=== PATIENT | female | born 1970 | race Caucasian/White ===

== ENCOUNTER 2017-07-02 22:24 | Emergency (ER) | payer OTHER ==
[~2017-07-02] VITALS: Ht 154.9 cm; Wt 52.2 kg
[~2017-07-02 22:24] MED LIST changes: -PERC5TAB12 PO; -ZOFR4TAB3 PO
[2017-07-03] MEDS ORDERED: KETOROLAC 30 MG/ML VIAL (J1885) IV ONE (00:15)
[2017-07-03] MEDS ORDERED: NS 1,000 ML IV ONE (00:15)
[2017-07-03 00:58] LABS: RENAL EPITHELIAL CELLS 1 /HPF
[2017-07-03 01:07] LABS: BASO % 0.4 % (0.0-1.0); EOS # 0.1 K/mm3 (0.0-0.50); EOS % 0.5 % (0.0-3.0); LARGE UNSTAINED CELL # 0.2 K/mm3 (0.0-0.4); LARGE UNSTAINED CELL % 1.3 % (0.0-4.0); LYMPH # 1.6 K/mm3 (1.5-4.5); LYMPH % 10.2 % (24.0-44.0); MEAN CORPUSCULAR HEMOGLOBIN 34.2 pg (27.0-33.0); MEAN CORPUSCULAR VOLUME 100.6 fl (80.0-96.0); MONO # 1.2 K/mm3 (0.0-0.8); MONO % 8.6 % (0.0-5.0); NEUTROPHILS # 11.1 K/mm3 (1.8-7.7); PLATELET COUNT, AUTOMATED 184 k/mm3 (150-450); RED CELL DISTRIBUTION WIDTH 12.8 % (11.5-14.5); WHITE BLOOD COUNT 14.1 K/mm3 (4.0-10.0)
[2017-07-03 01:16] LABS: ALBUMIN 3.3 GM/DL (3.2-5.2); ALKALINE PHOSPHATASE 51 U/L (45-117); ALT/SGPT 22 U/L (12-78); ANION GAP 9 MEQ/L (8-16); AST/SGOT 13 U/L (15-37); BILIRUBIN,DIRECT 0.2 MG/DL (0.0-0.2); BILIRUBIN,TOTAL 0.9 MG/DL (0.2-1.0); BLOOD UREA NITROGEN 11 MG/DL (7-18); CALCIUM LEVEL 8.8 MG/DL (8.5-10.1); CARBON DIOXIDE LEVEL 24 MEQ/L (21-32); CHLORIDE LEVEL 100 MEQ/L (98-107); CREATININE FOR GFR 0.86 MG/DL (0.55-1.02); GLOMERULAR FILTRATION RATE > 60.0 (>58); GLUCOSE, FASTING 103 MG/DL (70-105); POTASSIUM SERUM 3.9 MEQ/L (3.5-5.1); SODIUM LEVEL 133 MEQ/L (136-145); TOTAL PROTEIN 6.6 GM/DL (6.4-8.2)
--- NOTE | 2017-07-03 01:40 | REPUSA ---
CLINICAL HISTORY: Abdominal pain. TECHNIQUE: Multiple axial, sagittal and coronal CT images were obtained through the abdomen and pelvi s without administration of oral or IV contrast material. COMMENTS: The liver is of uniform attenuation without mass or defect. There is no intra or extrahepatic biliary ductal dilatation. The spleen is normal. The gallbladder is within normal limits. The pancreas is of normal contour and attenuation characteristics. There is no evidence of adrenal mass. 3mm right renal upper pole stone. Mild fullness of the right collecting system with perinephric fat s tranding. No renal or ureteral calculi are identified. There is no hydroureter or hydronephrosis. There is no evidence for appendicitis. There is no bowel wall thickening. No evidence for small or la rge bowel obstruction. There is no evidence of abdominal ascites or lymphadenopathy. There is no evidence of intrinsic or extrinsic bladder mass. There is no pelvic ascites or lymphadeno inder. Thickened bladder. Images of the lung bases show no evidence of pleural or parenchymal mass. There are no pleural effusi ons. The bony structures are free of lytic or blastic lesions. Multilevel degenerative changes are seen in volving the thoracolumbar spine. Scattered calcifications are seen involving the aorta and major branches compatible with atherosclero sis. IMPRESSION: Right renal calyceal stone. Fullness of the right collecting system. Recent passage of a calculus versus an ascending urinary tract infection. Diffusely thickened bladder. Thank you for your kind referral of this patient.
[2017-07-03] MEDS ORDERED: PERC5TAB12 PO (01:55)
[2017-07-03] MEDS ORDERED: ZOFR4TAB3 PO (01:57)
[2017-07-03 02:11] VITALS: BP 90/51
== END 2017-07-03 02:11 | disposition home or self-care (01) ==
LOC: M ED 22:24
DX: N10 Acute pyelonephritis (principal); N20.0 Calculus of kidney; E78.4 Other hyperlipidemia; Z72.0 Tobacco use
CPT/HCPCS: 74176; 80048; 80076; 81001; 81025; 85025; 96361; 96374; 99284; J1885

== ENCOUNTER → 2017-07-02 | Outpatient (REF) | payer OTHER ==
[~2017-07-02] MED LIST: /PANT40TA PO; CARA1TAB2 PO; LIPI80TA PO; PERC5TAB12 PO; ZOFR4TAB3 PO
== END ==
LOC: M LAB REF 09:48
PROVIDERS: ATTEND Physician Assistant
DX: N39.0 Urinary tract infection, site not specified (principal)

== ENCOUNTER → 2017-08-22 | Outpatient (CLI) | payer OTHER ==
[~2017-08-22] MED LIST changes: +PERC5TAB12 PO; +ZOFR4TAB3 PO
--- NOTE | 2017-08-25 15:34 | REPMRS ---
Patient History The patient states she had a clinical breast exam in 06/26 No known family history of cancer. Digital Woman Screen Mammo: August 22, 2017 - Exam #: [id number] Bilateral CC and MLO view(s) were taken. Technologist: Kristel Mckeon, Technologist Prior study comparison: July 25, 2016, digital woman screen mammo performed at [facility]. June 07, 2015, digital woman screen mammo performed at [facility]. FINDINGS: The breast tissue is heterogeneously dense. This may lower the sensitivity of mammography. There has been no change in the appearance of the mammogram from the prior studies. There is a moderate amount of residual fibroglandular tissue which is fairly symmetric. There is no interval development of dominant mass, areas of architectural distortion, or clustered microcalcification typical of malignancy. ASSESSMENT: BI-RADS/ACR category 1 mammogram. Negative. Recommendation Routine screening mammogram in 1 year (for women over age 40). This mammogram was interpreted with the aid of an FDA-approved computer-aided dectection system. Electronically Signed By: Ronni Humphrey MD 08/25/17 [id number]
== END ==
LOC: M WHC 13:48
PROVIDERS: ATTEND Family Medicine
DX: Z12.31 Encounter for screening mammogram for malignant neoplasm of breast (principal)

== ENCOUNTER → 2018-01-29 | Outpatient (CLI) | payer OTHER | LOC: M WUC 11:22 | DX: Q76.49 Other congenital malformations of spine, not associated with scoliosis (principal); M54.5 Low back pain | CPT/HCPCS: 72110 ==

== ENCOUNTER → 2018-03-09 | Outpatient (CLI) | payer OTHER ==
[2018-03-11 08:06] LABS: MUMPS VIRUS IgG ANTIBODY 10.1 AU/mL (Immune >10.9)
== END ==
LOC: M WUC 12:14
DX: Z01.84 Encounter for antibody response examination (principal)
CPT/HCPCS: 86735

== ENCOUNTER 2018-06-07 01:37 | Emergency (ER) | payer OTHER ==
[2018-06-07] MEDS: TETANUS/DIPHTHERIA TOX ADSORB ADULT 0.5ML SYR/VIAL (90714) IM (06:47)
== END 2018-06-07 07:28 | disposition home or self-care (01) ==
LOC: M ED 01:37
DX: S91.312A Laceration without foreign body, left foot, initial encounter (principal); X58.XXXA Exposure to other specified factors, initial encounter; Y92.009 Unspecified place in unspecified non-institutional (private) residence as the place of occurrence of the external cause; F33.9 Major depressive disorder, recurrent, unspecified; F17.200 Nicotine dependence, unspecified, uncomplicated; Z79.899 Other long term (current) drug therapy
CPT/HCPCS: 90714

== ENCOUNTER → 2018-06-15 | Outpatient (REF) | payer OTHER | LOC: M SFHCPLAZ 10:33 | DX: E78.5 Hyperlipidemia, unspecified (principal); Z53.9 Procedure and treatment not carried out, unspecified reason ==

== ENCOUNTER → 2018-08-20 | Outpatient (CLI) | payer OTHER ==
[2018-08-20 14:04] LABS: BASO # 0.1 10^3/uL (0.0-0.2); EOS # 0.2 10^3/uL (0.0-0.50); EOS % 2.7 % (0.0-3.0); HEMATOCRIT 45.7 % (36.0-47.0); HEMOGLOBIN 14.9 g/dl (12.0-15.5); IMMATURE GRANULOCYTE % 0.3 % (0-3.0); LYMPH # 2.7 10^3/uL (1.5-4.5); LYMPH % 39.4 % (24.0-44.0); MEAN CORPUSCULAR HEMOGLOBIN 31.9 pg (27.0-33.0); MEAN CORPUSCULAR HGB CONC 32.6 g/dl (32.0-36.5); MEAN CORPUSCULAR VOLUME 97.9 fl (80.0-96.0); MONO # 0.8 10^3/uL (0.0-0.8); MONO % 11.2 % (0.0-5.0); NEUTROPHILS # 3.2 10^3/uL (1.8-7.7); NEUTROPHILS % 45.4 % (36.0-66.0); PLATELET COUNT, AUTOMATED 291 10^3/uL (150-450); RED BLOOD COUNT 4.67 10^6/uL (4.00-5.40); RED CELL DISTRIBUTION WIDTH 13.9 % (11.5-14.5)
[2018-08-20 15:01] LABS: ESTIMATED AVERAGE GLUCOSE 111 MG/DL (60-110); HEMOGLOBIN A1c 5.5 %
[2018-08-20 15:15] LABS: ALBUMIN 3.4 GM/DL (3.2-5.2); ALKALINE PHOSPHATASE 70 U/L (45-117); ALT/SGPT 27 U/L (12-78); ANION GAP 9 MEQ/L (8-16); AST/SGOT 19 U/L (7-37); BILIRUBIN,TOTAL 0.5 MG/DL (0.2-1.0); BLOOD UREA NITROGEN 11 MG/DL (7-18); CALCIUM LEVEL 8.7 MG/DL (8.5-10.1); CARBON DIOXIDE LEVEL 27 MEQ/L (21-32); CHLORIDE LEVEL 105 MEQ/L (98-107); CHOLESTEROL LEVEL 214 MG/DL (<200); CHOLESTEROL RISK RATIO 4.367 (<5); CREATININE FOR GFR 0.68 MG/DL (0.55-1.30); GLOMERULAR FILTRATION RATE > 60.0 (>58); GLUCOSE, FASTING 72 MG/DL (70-100); HDL CHOLESTEROL 49 MG/DL (>40); LDL CHOLESTEROL 139 MG/DL (<100); NON-HDL-C 165 MG/DL; POTASSIUM SERUM 4.8 MEQ/L (3.5-5.1); SODIUM LEVEL 141 MEQ/L (136-145); TOTAL PROTEIN 6.8 GM/DL (6.4-8.2); TRIGLYCERIDES LEVEL 132 MG/DL (<150)
== END ==
LOC: M WUC 08:55
DX: Z00.00 Encounter for general adult medical examination without abnormal findings (principal)
CPT/HCPCS: 84443

== ENCOUNTER → 2018-08-25 | Outpatient (CLI) | payer OTHER ==
[2018-08-25 14:26] LABS: FREE T4 0.86 NG/DL (0.76-1.46)
== END ==
LOC: M WUC 12:03
DX: R79.89 Other specified abnormal findings of blood chemistry (principal)
CPT/HCPCS: 84443

== ENCOUNTER → 2018-10-13 | Outpatient (CLI) | payer OTHER | LOC: M WHC 08:58 | DX: Z12.31 Encounter for screening mammogram for malignant neoplasm of breast (principal); N85.8 Other specified noninflammatory disorders of uterus; N92.1 Excessive and frequent menstruation with irregular cycle | CPT/HCPCS: 76830 ==

== ENCOUNTER → 2020-03-15 | Outpatient (REF) | payer OTHER ==
[~2020-03-15] MED LIST changes: -/PANT40TA PO; +DULO1CAP6; +PROT1TAB2 PO; +VALA500T5; +ZOFR4TAB14 PO; -ZOFR4TAB3 PO
== END ==
LOC: M WUC 15:48
PROVIDERS: ATTEND Physician Assistant
DX: J20.9 Acute bronchitis, unspecified (principal); Z72.0 Tobacco use

== ENCOUNTER → 2020-12-14 | Outpatient (CLI) | payer OTHER ==
--- NOTE | 2020-12-14 11:28 | REPPI ---
INDICATION: S62.102A CLOSED FRACTURE OF LEFT WRIST, INITIAL ENCOUNTER COMPARISON: None. TECHNIQUE: AP, lateral, bilateral oblique views left wrist. FINDINGS: The carpal bones, surrounding osseous structures, soft tissues, and joint spaces are normal. There is no evidence for acute fracture or dislocation. No subcutaneous emphysema or radiodense foreign body. IMPRESSION: Normal wrist series. No acute fracture or dislocation. <Electronically signed by Delfino Hewitt > 12/14/20 [id number]
== END ==
LOC: M PLAIMG 10:21
DX: Z87.81 Personal history of (healed) traumatic fracture (principal)

== ENCOUNTER 2021-05-24 02:43 | Emergency (ER) | payer OTHER ==
[~2021-05-24] VITALS: Ht 154.9 cm; Wt 74.3 kg
[2021-05-24] MEDS ORDERED: AUGMENTIN 875 MG TAB PO ONE (06:45)
[2021-05-24] MEDS ORDERED: IBUPROFEN 800 MG TAB PO ONE (06:45)
[2021-05-24] MEDS ORDERED: TRAM50TA2 PO (06:47)
[2021-05-24] MEDS ORDERED: IBUP-1022 PO (06:47)
[2021-05-24] MEDS ORDERED: AUGM875T28 PO (06:47)
[2021-05-24 06:48] VITALS: BP 138/82
== END 2021-05-24 06:54 | disposition home or self-care (01) ==
LOC: M ED 02:43
DX: K02.9 Dental caries, unspecified (principal); K08.89 Other specified disorders of teeth and supporting structures; E78.5 Hyperlipidemia, unspecified; F32.9 Major depressive disorder, single episode, unspecified; F41.9 Anxiety disorder, unspecified; F17.200 Nicotine dependence, unspecified, uncomplicated; Z79.899 Other long term (current) drug therapy

== ENCOUNTER → 2021-07-25 | Outpatient (REF) | payer OTHER ==
[~2021-07-25] MED LIST changes: +AUGM875T28 PO; +IBUP-1022 PO; +TRAM50TA2 PO
== END ==
LOC: M WUC 20:07
PROVIDERS: ATTEND Physician Assistant
DX: R82.90 Unspecified abnormal findings in urine (principal)

== ENCOUNTER → 2021-08-20 | Outpatient (REF) | LOC: M LAB 14:44 | PROVIDERS: ATTEND Nurse Practitioner Adult Health | DX: Z02.1 Encounter for pre-employment examination (principal) ==

== ENCOUNTER → 2022-08-27 | Outpatient (CLI) | payer OTHER, MEDICAID ==
[2022-08-27 12:15] LABS: CHOLESTEROL RISK RATIO 6.016 (<5)
[2022-08-27 12:50] LABS: TOTAL 25(OH) VITAMIN D 18.9 NG/ML (30.0-100.0)
== END ==
LOC: M WUC 09:01
PROVIDERS: ATTEND Student in an Organized Health Care Education/Training Program
DX: E55.9 Vitamin D deficiency, unspecified (principal); E78.5 Hyperlipidemia, unspecified

== ENCOUNTER → 2022-09-25 | Outpatient (CLI) | payer OTHER | LOC: M WHC 14:23 | PROVIDERS: ATTEND Student in an Organized Health Care Education/Training Program | DX: Z12.31 Encounter for screening mammogram for malignant neoplasm of breast (principal) ==

== ENCOUNTER → 2022-10-23 | Outpatient (CLI) | payer MEDICAID, OTHER ==
[~2022-10-23] MED LIST changes: +CRES40TA PO
== END ==
LOC: M LABSMTC 10:06
PROVIDERS: ATTEND Anesthesiology
DX: Z01.812 Encounter for preprocedural laboratory examination (principal); Z11.52 Encounter for screening for COVID-19

== ENCOUNTER 2022-10-28 08:59 | Day surgery (SDC) | payer OTHER ==
[~2022-10-28] VITALS: Ht 154.9 cm; Wt 56.2 kg
[~2022-10-28 08:59] MED LIST changes: +NS 1,000 ML IV ONE
[2022-10-28] MEDS ORDERED: propofoL 200 MG/20 ML VIAL As Ordered ONE ×2 (10:00→10:01)
[2022-10-28] MEDS ORDERED: PHENYLEPHRINE 10MG/ML 1ML VIAL As Ordered ONE (10:00)
[2022-10-28 10:35] VITALS: BP 100/60
== END 2022-10-28 10:37 | disposition home or self-care (01) ==
LOC: M OPP 08:59
PROVIDERS: ATTEND Surgery
DX: Z12.11 Encounter for screening for malignant neoplasm of colon (principal); D12.6 Benign neoplasm of colon, unspecified; K64.9 Unspecified hemorrhoids; Z79.02 Long term (current) use of antithrombotics/antiplatelets; Z79.1 Long term (current) use of non-steroidal anti-inflammatories (NSAID); Z79.899 Other long term (current) drug therapy; F32.9 Major depressive disorder, single episode, unspecified; F41.9 Anxiety disorder, unspecified; I10 Essential (primary) hypertension; K21.9 Gastro-esophageal reflux disease without esophagitis; F17.200 Nicotine dependence, unspecified, uncomplicated
CPT/HCPCS: 45385; 88305; J2370

== ENCOUNTER → 2023-03-31 | Outpatient (CLI) | payer OTHER ==
[~2023-03-31] MED LIST changes: -NS 1,000 ML IV ONE
[2023-03-31 17:18] LABS: CHOLESTEROL RISK RATIO 3.7 (<5); HDL CHOLESTEROL 49.7 MG/DL (>40); LDL CHOLESTEROL 115.7 MG/DL (<100); NON-HDL-C 134.3 MG/DL
== END ==
LOC: M WUC 11:25
PROVIDERS: ATTEND Student in an Organized Health Care Education/Training Program
DX: E78.00 Pure hypercholesterolemia, unspecified (principal)

== ENCOUNTER 2023-06-08 08:29 | Emergency (ER) | payer OTHER ==
[~2023-06-08] VITALS: Ht 154.9 cm; Wt 61.1 kg
[2023-06-08] MEDS ORDERED: ALIR75PE3 (11:10)
[2023-06-08] MEDS ORDERED: NS 1,000 ML IV ONE (11:25)
[2023-06-08 11:53] LABS: HEMATOCRIT 43.3 % (36.0-47.0); HEMOGLOBIN 14.3 g/dl (12.0-15.5); MEAN CORPUSCULAR VOLUME 93.7 fl (80.0-96.0); PLATELET COUNT, AUTOMATED 243 10^3/uL (150-450); RED BLOOD COUNT 4.62 10^6/uL (4.00-5.40)
[2023-06-08 12:09] LABS: ATYPICAL LYMPH 14 % (0-5); BASOPHILS 2 % (0-1); EOSINOPHILS 2 % (0-3); LYMPHOCYTES 30 % (16-44); MONOCYTES 5 % (0-5); NEUTROPHILS 47 % (28-66); PLATELET ESTIMATE NORMAL (NORMAL)
[2023-06-08 12:20] LABS: CK-MB VALUE MASS 1.9 NG/ML (<3.6)
[2023-06-08 12:24] LABS: CPK CREATINE PHOSPHOKINASE 155 U/L (34-145); MB/CK RELATIVE INDEX 1.22 (< OR =4)
[2023-06-08] MEDS ORDERED: ISOVUE-370 76% 100ML VIAL As Ordered ONE (12:33)
[2023-06-08 13:20] LABS: MONO SCRN NEGATIVE (NEGATIVE)
[2023-06-08] MEDS ORDERED: dexAMETHasone 20MG/5ML VIAL IV ONE (13:45)
[2023-06-08] MEDS ORDERED: KETOROLAC 30 MG/ML 1ML VIAL IV ONE (13:45)
[2023-06-08] MEDS ORDERED: NAPR-885 PO (13:56)
[2023-06-08 14:01] VITALS: BP 135/61; TEMP 98.6; O2SAT 99
== END 2023-06-08 14:26 | disposition home or self-care (01) ==
LOC: M ED 08:29
DX: R07.89 Other chest pain (principal); J43.9 Emphysema, unspecified; J47.9 Bronchiectasis, uncomplicated; Z87.442 Personal history of urinary calculi; F41.9 Anxiety disorder, unspecified; F32.A Depression, unspecified; F17.210 Nicotine dependence, cigarettes, uncomplicated; Z79.899 Other long term (current) drug therapy
CPT/HCPCS: 71101; 71275; 80047; 82550; 82553; 85025; 86308; 93005; 96374; 96375; 99284; J1100; J1885; Q9967

== ENCOUNTER → 2023-07-21 | Outpatient (CLI) | payer OTHER ==
[~2023-07-21] MED LIST changes: +ALIR75PE3; +NAPR-885 PO
== END ==
LOC: M CARPUL 13:12
PROVIDERS: ATTEND Student in an Organized Health Care Education/Training Program
DX: J43.2 Centrilobular emphysema (principal)

== ENCOUNTER → 2023-09-09 | Outpatient (REF) | payer OTHER | LOC: M SFHCPLAZ 12:40 | PROVIDERS: ATTEND Student in an Organized Health Care Education/Training Program | DX: R05.9 Cough, unspecified (principal) ==

== ENCOUNTER → 2024-02-02 | Outpatient (CLI) | payer OTHER ==
[2024-02-02 17:17] LABS: BASO # 0.1 10^3/uL (0.0-0.2); BASO % 1.6 % (0.0-1.0); EOS # 0.3 10^3/uL (0.0-0.5); EOS % 3.4 % (0.0-3.0); HEMATOCRIT 45.8 % (36.0-47.0); HEMOGLOBIN 15.3 g/dl (12.0-15.5); LYMPH # 3.6 10^3/uL (1.5-5.0); LYMPH % 45.4 % (24.0-44.0); MEAN CORPUSCULAR HGB CONC 33.4 g/dl (32.0-36.5); MEAN CORPUSCULAR VOLUME 95.8 fl (80.0-96.0); MONO # 0.7 10^3/uL (0.0-0.8); MONO % 8.4 % (2.0-8.0); NEUTROPHILS # 3.3 10^3/uL (1.5-8.5); NEUTROPHILS % 40.9 % (36.0-66.0); PLATELET COUNT, AUTOMATED 257 10^3/uL (150-450); RED BLOOD COUNT 4.78 10^6/uL (4.00-5.40)
[2024-02-02 17:21] LABS: ALBUMIN 3.5 G/DL (3.2-5.2); ALKALINE PHOSPHATASE 57 U/L (46-116); ALT/SGPT 22 U/L (7.0-40); AST/SGOT 20 U/L (<34); BILIRUBIN,TOTAL 0.5 MG/DL (0.3-1.2); BLOOD UREA NITROGEN 14 MG/DL (9-23); CALCIUM LEVEL 8.9 MG/DL (8.5-10.1); CARBON DIOXIDE LEVEL 28 MMOL/L (20-31); CHLORIDE LEVEL 109 MMOL/L (98-107); CHOLESTEROL LEVEL 188 MG/DL (<200); CHOLESTEROL RISK RATIO 3.04 (<5); CREATININE FOR GFR 0.66 MG/DL (0.55-1.30); GLOMERULAR FILTRATION RATE > 60.0 (>51); GLUCOSE, FASTING 99 MG/DL (60-100); HDL CHOLESTEROL 61.7 MG/DL (>40); LDL CHOLESTEROL 109.1 MG/DL (<100); NON-HDL-C 126.3 MG/DL; POTASSIUM SERUM 4.4 MMOL/L (3.5-5.1); SODIUM LEVEL 140 MMOL/L (136-145); TOTAL PROTEIN 6.2 G/DL (5.7-8.2); TRIGLYCERIDES LEVEL 86 MG/DL (<150)
[2024-02-02 17:22] LABS: TOTAL 25(OH) VITAMIN D 11.3 NG/ML (20.0-100.0)
[2024-02-02 17:27] LABS: AMORPHOUS SEDIMENT MODERATE (NEGATIVE); APPEARANCE, URINE TURBID (CLEAR); BACTERIA, URINE AUTO NEGATIVE (NEGATIVE); BILIRUBIN, URINE AUTO NEGATIVE (NEGATIVE); BLOOD, URINE BLOOD 2+ (NEGATIVE); COLOR, URINE AMBER (YELLOW); GLUCOSE, URINE (UA) AUTO NEGATIVE (NEGATIVE); KETONE, URINE AUTO NEGATIVE (NEGATIVE); LEUKOCYTE ESTERASE, URINE AUTO NEGATIVE (NEGATIVE); MUCUS, URINE SMALL (NEGATIVE); NITRITE, URINE AUTO NEGATIVE (NEGATIVE); PROTEIN, URINE AUTO NEGATIVE (NEGATIVE); RBC, URINE AUTO 2 /HPF (0-3); SPECIFIC GRAVITY URINE AUTO 1.023 (1.002-1.035); SQUAMOUS EPITHELIAL CELL UR AU 3 /HPF (0-6); UROBILINOGEN, URINE AUTO 0.2 mg/dL (0.0-2.0); WBC, URINE AUTO 3 /HPF (0-3)
[2024-02-02 17:28] LABS: HEPATITIS B SURFACE ANTIBODY NEGATIVE (POSITIVE)
[2024-02-02 17:29] LABS: HEMOGLOBIN A1c 5.5 % (4.0-6.0)
[2024-02-02 17:53] LABS: HIV 1&2 SCREEN NEGATIVE (NEGATIVE)
[2024-02-02 18:01] LABS: HEPATITIS B CORE ANTIBODY IGM NEGATIVE (NEGATIVE); HEPATITIS C VIRUS ABY INDEX < 0.02 INDEX (<0.8)
== END ==
LOC: M WUC 10:34
PROVIDERS: ATTEND Student in an Organized Health Care Education/Training Program
DX: Z00.00 Encounter for general adult medical examination without abnormal findings (principal); E55.9 Vitamin D deficiency, unspecified; E78.00 Pure hypercholesterolemia, unspecified; K21.9 Gastro-esophageal reflux disease without esophagitis; Z13.1 Encounter for screening for diabetes mellitus

== ENCOUNTER → 2024-05-21 | Outpatient (REF) | payer OTHER | LOC: M SFHCPLAZ 16:15 | PROVIDERS: ATTEND Family Medicine | DX: J15.9 Unspecified bacterial pneumonia (principal) ==

== ENCOUNTER → 2024-05-21 | Outpatient (CLI) | payer OTHER | LOC: M PLAIMG 16:19 | PROVIDERS: ATTEND Family Medicine | DX: J15.9 Unspecified bacterial pneumonia (principal) ==

== ENCOUNTER → 2024-06-04 | Outpatient (CLI) | payer OTHER | LOC: M WHC 12:07 | PROVIDERS: ATTEND Student in an Organized Health Care Education/Training Program | DX: Z12.31 Encounter for screening mammogram for malignant neoplasm of breast (principal) ==

== ENCOUNTER → 2024-07-21 | Outpatient (REF) | LOC: M EMP 08:44 | PROVIDERS: ATTEND Family Medicine | DX: Z01.89 Encounter for other specified special examinations (principal) ==

== ENCOUNTER → 2025-04-18 | Outpatient (CLI) | payer OTHER ==
[2025-04-18 19:17] LABS: BASO # 0.1 10^3/uL (0.0-0.2); BASO % 1.4 % (0.0-1.0); EOS # 0.2 10^3/uL (0.0-0.5); EOS % 2.2 % (0.0-3.0); HEMATOCRIT 45.8 % (36.0-47.0); HEMOGLOBIN 15.2 g/dl (12.0-15.5); LYMPH # 2.9 10^3/uL (1.5-5.0); LYMPH % 40.9 % (24.0-44.0); MEAN CORPUSCULAR HEMOGLOBIN 31.2 pg (27.0-33.0); MEAN CORPUSCULAR HGB CONC 33.2 g/dl (32.0-36.5); MONO # 0.6 10^3/uL (0.0-0.8); MONO % 7.9 % (2.0-8.0); NEUTROPHILS # 3.4 10^3/uL (1.5-8.5); NEUTROPHILS % 47.3 % (36.0-66.0); PLATELET COUNT, AUTOMATED 261 10^3/uL (150-450); RED BLOOD COUNT 4.87 10^6/uL (4.00-5.40); WHITE BLOOD COUNT 7.2 10^3/uL (4.0-10.0)
[2025-04-18 19:45] LABS: IRON (FE) 122 UG/DL (50-170); PERCENT SATURATION 37.5 % (13.2-45.0); TOTAL IRON BINDING CAPACITY 325 UG/DL (250-425)
[2025-04-18 19:46] LABS: ALBUMIN 3.7 G/DL (3.2-5.2); ALKALINE PHOSPHATASE 69 U/L (35-104); ALT/SGPT 23 U/L (7.0-40); AST/SGOT 22 U/L (<34); BILIRUBIN,TOTAL 0.4 MG/DL (0.3-1.2); BLOOD UREA NITROGEN 9 MG/DL (9-23); CALCIUM LEVEL 9.2 MG/DL (8.5-10.1); CARBON DIOXIDE LEVEL 25 MMOL/L (20-31); CHLORIDE LEVEL 106 MMOL/L (98-107); CHOLESTEROL LEVEL 240 MG/DL (<200); CHOLESTEROL RISK RATIO 4.66 (<5); CREATININE FOR GFR 0.65 MG/DL (0.55-1.30); GLOMERULAR FILTRATION RATE > 90.0 (>51); GLUCOSE, FASTING 77 MG/DL (60-100); HDL CHOLESTEROL 51.5 MG/DL (>40); LDL CHOLESTEROL 143.7 MG/DL (<100); NON-HDL-C 188.5 MG/DL; POTASSIUM SERUM 4.9 MMOL/L (3.5-5.1); SODIUM LEVEL 139 MMOL/L (136-145); THYROID STIMULATING HORMONE 3.761 uIU/ML (0.55-4.78); TOTAL PROTEIN 6.6 G/DL (5.7-8.2); TRIGLYCERIDES LEVEL 224 MG/DL (<150)
[2025-04-18 19:47] LABS: VITAMIN B12 LEVEL 583 PG/ML (211-911)
[2025-04-18 20:04] LABS: HEMOGLOBIN A1c 5.4 % (4.0-6.0)
[2025-04-23 16:13] LABS: VITAMIN B6,PYRIDOXAL PHOSPHATE 3.6 ng/mL (2.1-21.7)
== END ==
LOC: M PLALAB 16:01
PROVIDERS: ATTEND Student in an Organized Health Care Education/Training Program
DX: Z00.00 Encounter for general adult medical examination without abnormal findings (principal); G25.81 Restless legs syndrome

== ENCOUNTER → 2025-05-17 | Outpatient (REF) | payer OTHER | LOC: M SFHCPLAZ 18:33 | PROVIDERS: ATTEND Family Medicine | DX: Z53.9 Procedure and treatment not carried out, unspecified reason (principal) ==

== ENCOUNTER → 2025-06-09 | Outpatient (CLI) | payer OTHER | LOC: M RAD 10:36 | DX: Z12.2 Encounter for screening for malignant neoplasm of respiratory organs (principal); F17.210 Nicotine dependence, cigarettes, uncomplicated; I70.0 Atherosclerosis of aorta; J98.11 Atelectasis; J43.9 Emphysema, unspecified ==

== ENCOUNTER → 2025-07-18 | Outpatient (CLI) | payer OTHER ==
[~2025-07-18] MED LIST changes: -IBUP-1022 PO; +IBUP600T42 PO
[2025-07-18 16:24] LABS: CHOLESTEROL LEVEL 239.0 MG/DL (<200); CHOLESTEROL RISK RATIO 4.56 (<5); LDL CHOLESTEROL 155.8 MG/DL (<100); NON-HDL-C 186.6 MG/DL; TRIGLYCERIDES LEVEL 154.0 MG/DL (<150)
[2025-07-18 16:25] LABS: TOTAL 25(OH) VITAMIN D 28.5 NG/ML (20.0-100.0)
[2025-07-18 17:00] LABS: VITAMIN B12 LEVEL 609.0 PG/ML (211-911)
== END ==
LOC: M WUC 11:02
DX: E78.00 Pure hypercholesterolemia, unspecified (principal); Z13.21 Encounter for screening for nutritional disorder

== ENCOUNTER → 2025-09-20 | Outpatient (REF) | payer OTHER | LOC: M SFHCPLAZ 21:43 | PROVIDERS: ATTEND Family Medicine | DX: E78.00 Pure hypercholesterolemia, unspecified (principal) ==